=== PATIENT | female | born 1975 | race Caucasian/White ===

== ENCOUNTER 2019-11-21 12:18 | Outpatient (REF) | payer MEDICAID, SELFPAY ==
[2019-11-24 20:48] LABS: Beta-HCG, Quant, Tumor Marker <0.6 IU/L
== END 2019-11-21 12:38 ==
LOC: NCHCN 12:18
PROVIDERS: PCP Physician Assistant; Visit Provider Physician Assistant
DX: N91.2 Amenorrhea, unspecified (principal)
CPT/HCPCS: 84702

== ENCOUNTER 2020-06-01 14:05 | Outpatient (REF) | payer MEDICAID, SELFPAY ==
[2020-06-05 21:22] LABS: Patient Race White; SARS-CoV-2 RNA Undetected (Undetected); SARS-CoV-2 Specimen Source Nasal
== END 2020-06-01 14:25 ==
LOC: NCHCN 14:05
PROVIDERS: PCP Physician Assistant; Visit Provider Orthopaedic Surgery Adult Reconstructive Orthopaedic Surgery
DX: Z11.59 Encounter for screening for other viral diseases (principal)
CPT/HCPCS: U0003

== ENCOUNTER 2020-10-07 21:00 | Outpatient (REF) | payer MEDICAID, SELFPAY ==
[2020-10-09 14:21] LABS: COVID-19 RT-PCR UVMMC Result Negative (Negative)
== END 2020-10-07 21:01 | disposition home or self-care (01) ==
LOC: NCHCN 21:00
PROVIDERS: PCP Physician Assistant; Visit Provider Nurse Practitioner Family
DX: Z20.822 Contact with and (suspected) exposure to COVID-19 (principal); R06.09 Other forms of dyspnea
CPT/HCPCS: U0003

== ENCOUNTER → 2021-10-05 01:51 | Outpatient (CLI) | payer MEDICAID, SELFPAY ==
--- NOTE | 2021-10-05 | DI.US_ITS ---
Exam(s) US PELVIS TRANSVAGINAL EXAM: US PELVIS TRANSVAGINAL CLINICAL HISTORY: OVARIAN CYST N83.209 LOWER ABD PAIN R10.30 TECHNIQUE: Ultrasound of the pelvis was performed both transabdominal and transvaginal. COMPARISON: No exams were available for comparison FINDINGS: UTERUS: Nongravid and anteverted, measuring Measures 8.6 cm length x 4.1 cm AP x 4.7 cm wide. There are no uterine fibroids. Endometrial thickness measures 3.2 mm. There is no fluid in the endometrial canal. CERVIX: Multiple small nabothian cysts evident in the upper cervix RIGHT OVARY: Measures 0.1 x 2.6 x 1.5 cm No significant cysts nor masses evident in the right ovary. LEFT OVARY: Measures 0.8 x 2.6 x 1.7 cm Contains a follicular cysts measuring 0.7 x 0.6 cm. CUL-DE-SAC: No free fluid evident. IMPRESSION: 1. Normal appearing uterus and age-appropriate endometrium. 2. No abnormal ovarian findings. 3. No free fluid evident in the adnexal regions and cul-de-sac. DATA REPOSITORY:
== END ==
PROVIDERS: PCP Physician Assistant; Visit Provider Naturopath
DX: N83.201 Unspecified ovarian cyst, right side (principal); R10.30 Lower abdominal pain, unspecified; N83.202 Unspecified ovarian cyst, left side
CPT/HCPCS: 76830; 76856

== ENCOUNTER 2021-11-09 17:48 | Outpatient (CLI) | payer MEDICAID, SELFPAY ==
--- NOTE | 2021-11-09 | DI.RAD_ITS ---
Exam(s) XR ANKLE LT COMPLETE EXAM: XR ANKLE LT COMPLETE CLINICAL HISTORY: ANKLE/FOOT PAIN M25.579. TECHNIQUE: 2D digital imaging was performed. COMPARISON: No exams were available for comparison FINDINGS: 3 views No evidence of fracture or widening of the mortise. Talar dome unremarkable. There are no degenerat fred changes ankle subtalar joints. No evidence tarsal coalition. Bone density is normal. No osseou s lesions IMPRESSION: No significant osseous findings. DATA REPOSITORY: RADIATION DOSE DELIVERED:
--- NOTE | 2021-11-09 | DI.RAD_ITS ---
Exam(s) XR FOOT LT COMPLETE EXAM: XR FOOT LT COMPLETE CLINICAL HISTORY: ANKLE FOOT PAIN. TECHNIQUE: 2D digital imaging was performed. COMPARISON: No exams were available for comparison FINDINGS: 3 views There is no evidence of fracture diastasis the Merry joint. No osseous lesions erosions bone density n ormal. Prominent plantar arch noted. No calcifications seen the plantar fascia. IMPRESSION: No fracture evident. DATA REPOSITORY: RADIATION DOSE DELIVERED:
--- NOTE | 2021-11-09 17:27 | DI.VRAD_ITS ---
PROCEDURE INFORMATION: Exam: XR Left Ankle Exam date and time: 11/09/2021 4:53 PM Age: 46 years old Clinical indication: Other: Ankle and foot pain TECHNIQUE: Imaging protocol: XR Left ankle. Views: 3 or more views. COMPARISON: No relevant prior studies available. FINDINGS: Bones/joints: No acute fracture or malalignment. No significant degenerative change. No agressive bone destruction. Soft tissues: Unremarkable. IMPRESSION: 1. No acute findings. 2. If clinical concern for occult fracture, consider followup radiographs in 7-10 days. Dictated and Authenticated by: Luz Marina Eavns MD. Ordering:LE Stevenson MD
--- NOTE | 2021-11-09 17:27 | DI.VRAD_ITS ---
PROCEDURE INFORMATION: Exam: XR Left Foot Exam date and time: 11/09/2021 4:55 PM Age: 46 years old Clinical indication: Other: Ankle/foot pain TECHNIQUE: Imaging protocol: XR Left foot. Views: 3 or more views. COMPARISON: CR XR ANKLE LT COMPLETE 11/09/2021 4:53 PM FINDINGS: Bones/joints: No acute fracture or malalignment. No significant degenerative change. No agressive bone destruction. Soft tissues: Unremarkable. IMPRESSION: 1. No acute findings. 2. If clinical concern for occult fracture, consider followup radiographs in 7-10 days. Dictated and Authenticated by: Luz Marina Evans MD. Ordering:LE Stevenson MD
== END 2021-11-09 18:08 ==
PROVIDERS: PCP Physician Assistant; Visit Provider Family Medicine
DX: M25.572 Pain in left ankle and joints of left foot (principal); M79.672 Pain in left foot
CPT/HCPCS: 73610; 73630

== ENCOUNTER 2022-08-03 12:18 | Outpatient (REF) | payer MEDICAID, SELFPAY | END 2022-08-03 12:19 | disposition home or self-care (01) | LOC: NCHCN 12:18 | PROVIDERS: PCP Physician Assistant; Visit Provider Nurse Practitioner Family | DX: R19.4 Change in bowel habit (principal) | CPT/HCPCS: 87086 ==

== ENCOUNTER 2022-09-01 13:43 | Outpatient (CLI) | payer MEDICAID, SELFPAY ==
[2022-09-01 13:50] LABS: Abs Immature Grans 0.03 10^3/uL (0.0-0.06); Absolute Basophil Count 0.05 10^3/uL (0.0-0.2); Absolute Eosinophil Count 0.07 10^3/uL (0.0-0.7); Absolute Lymphocyte Count 1.92 10^3/uL (1.2-3.4); Absolute Monocyte Count 0.38 10^3/uL (0.1-0.8); Absolute Neutrophil Count 6.64 10^3/uL (1.2-6.7); Basophils % 0.6; Eosinophils % 0.8; HCT 38.2 % (36.0-46.0); HGB 13.3 g/dL (11.2-15.7); Immature Grans % 0.3; Lymphocytes % 21.1; MCHC 34.8 % (32.0-36.0); MCV 92 fL (80-95); MPV 11.8 fL (8.0-11.0); Monocytes % 4.2; Platelet Count 299 10^3/uL (130-400); RBC 4.15 10^6/uL (3.93-5.22); RDW 12.6 % (11.7-14.6); RDW-SD 42.1 fL; WBC 9.09 10^3/uL (4.4-10.8)
[2022-09-01 15:48] LABS: ALT 31 U/L (14-59); AST 23 U/L (15-37); Albumin 3.8 g/dL (3.4-5.0); Alkaline Phosphatase 44 U/L (46-116); BUN 16 mg/dL (7-18); Bilirubin, Total 0.2 mg/dL (0.2-1.0); CREATININE 0.8 mg/dL (0.55-1.02); Calcium 8.7 mg/dL (8.5-10.1); Chloride 102 mmol/L (98-107); Estimated GFR 92.54 (mL/min/1.73m2); Glucose 140 mg/dL (74-106); Potassium 3.5 mmol/L (3.5-5.1); Sodium 139 mmol/L (136-145)
[2022-09-01 15:50] LABS: C-Reactive Protein < 0.05 mg/dL (0.0-0.3)
[2022-09-01 16:23] LABS: ESR 2 mm/hr (0-20)
== END 2022-09-01 13:44 | disposition home or self-care (01) ==
LOC: LBO 13:45
PROVIDERS: PCP Physician Assistant; Visit Provider Naturopath
DX: R19.5 Other fecal abnormalities (principal)
CPT/HCPCS: 36415; 80053; 85652; 85025; 86140

== ENCOUNTER 2022-09-02 16:03 | Outpatient (REF) | payer MEDICAID, SELFPAY ==
[2022-09-05 16:53] LABS: Calprotectin <50.0 mcg/g
[2022-09-09 19:27] LABS: Lactoferrin, Qt, Stool <6.25 mcg/mL (<7.25)
== END 2022-09-02 16:04 | disposition home or self-care (01) ==
LOC: LBN 16:03
PROVIDERS: PCP Physician Assistant; Visit Provider Naturopath
DX: R19.5 Other fecal abnormalities (principal)
CPT/HCPCS: 83631; 83993; 87177

== ENCOUNTER 2022-10-16 09:51 | Outpatient (REF) | payer MEDICAID, SELFPAY ==
--- NOTE | 2022-10-16 09:25 | PAPFT_PTH ---
PATIENT: Danie Noe LOC: [facility] U#:[id number] AGE/SX: 47/F ROOM: RE10/16/[address]: Lizeth Roland NP : 1975 BED: DIS: 10/16/2022 SPEC #: [id number] RECD: 10/16/22 13:01 STATUS: TRISHA REQ #: [id number] LUIS: 10/16/22 09:[address]: Lizeth Roland NP DEPT: [facility] Cytology RECD BY: Kalani Holloway ENTERED: 10/16/22 13:02 SP TYPE: PAPFT OTHR DR: Arik Calle Tissues: 1 - CX/ENDOCX FOR PAP SMEARS Procedures: PAP THIN PREP/UVM Screening HPV DNA PROBE Comments: [id number]
== END 2022-10-16 09:52 | disposition home or self-care (01) ==
LOC: LBN 09:51
PROVIDERS: PCP Physician Assistant; Visit Provider Nurse Practitioner Women's Health
DX: Z12.4 Encounter for screening for malignant neoplasm of cervix (principal); Z11.51 Encounter for screening for human papillomavirus (HPV); R87.810 Cervical high risk human papillomavirus (HPV) DNA test positive
CPT/HCPCS: 88142; 87624

== ENCOUNTER 2022-11-23 01:47 | Outpatient (CLI) | payer MEDICAID, SELFPAY ==
[2022-11-23 22:19] LABS: Prolactin 5.3 ng/mL (See Note)
== END 2022-11-23 01:48 | disposition home or self-care (01) ==
LOC: LBO 01:47
PROVIDERS: PCP Physician Assistant; Visit Provider Nurse Practitioner Women's Health
DX: N64.52 Nipple discharge (principal)
CPT/HCPCS: 36415; 84146

== ENCOUNTER 2022-12-27 10:40 | Outpatient (REF) | payer MEDICAID, SELFPAY ==
--- NOTE | 2022-12-27 10:30 | CER_PTH ---
PATIENT: Danie Noe LOC: [facility] U#:[id number] AGE/SX: 47/F ROOM: RE12/27/[address]: Cathy Carr MD : 1975 BED: DIS: 12/27/2022 SPEC #: [id number] RECD: 12/27/22 17:39 STATUS: TRISHA REQ #: [id number] LUIS: 12/27/22 10:[address]: Cathy Carr DEPT: Surgical Specimen RECD BY: Kalani Holloway ENTERED: 12/27/22 17:40 SP TYPE: CER OTHR DR: Arik Calle Tissues: 1 - CERVICAL BIOPSY 2 - ENDOCERVICAL BX/CURRETTE Procedures: GROSS AND MICRO LEVEL 4 Comments: [id number]
== END 2022-12-27 10:41 | disposition home or self-care (01) ==
LOC: LBN 10:40
PROVIDERS: PCP Physician Assistant; Visit Provider Obstetrics & Gynecology
DX: R87.810 Cervical high risk human papillomavirus (HPV) DNA test positive (principal); N88.8 Other specified noninflammatory disorders of cervix uteri
CPT/HCPCS: 88305

== ENCOUNTER 2023-01-18 02:16 | Outpatient (CLI) | payer MEDICAID, SELFPAY ==
--- NOTE | 2023-01-18 13:44 | DI.MAMMO_ITS ---
Exam(s) MAMMO DIAGNOSTIC BI EXAM: MAMMO DIAGNOSTIC BI CLINICAL HISTORY: R sided nipple discharge,n64.52 TECHNIQUE: Mammograms were interpreted according to the usual protocol including computer analysis w [employer] CAD system, tomosynthesis and C-view imaging. COMPARISON: 2020 from [facility] FINDINGS: The breasts are composed of heterogeneously dense fibroglandular densities, Breast Density category C . No suspicious masses or suspicious microcalcifications are seen. No skin thickening or abnormal axillary lymph nodes are seen. There has been no significant change from prior exam. IMPRESSION: BI-RADS Category 1, Negative mammogram. Yearly screening mammography is recommended. Breast Density Category C, heterogeneously Dense. The mammogram demonstrates the patient's breast tissue is dense. Dense breast tissue is very common a nd is not abnormal but dense breast tissue can make it harder to find cancer on a mammogram. Also, de nse breast tissue may increase breast cancer risk. This information about the result of the mammogram report was provided to the patient to raise their awareness. Use this report when you speak with the patient about their risks for breast cancer, which includes their family history. At that time, you may recommend additional screening tests (Ultrasound or MRI) as they might be useful based on their r isk. A negative radiographic report should not delay biopsy if a dominant or clinically suspicious mass is present. Up to ten percent of cancers are not identified on mammography. A negative report may reinforce clinical impression. Adenosis and dense breasts may obscure an underlying neoplasm. False positive reports average 6 to 10%.
== END 2023-01-18 02:36 ==
LOC: DI 02:16
PROVIDERS: PCP Physician Assistant; Visit Provider Nurse Practitioner Women's Health
DX: N64.52 Nipple discharge (principal); Z12.31 Encounter for screening mammogram for malignant neoplasm of breast
CPT/HCPCS: 77062; 77066; G0279

== ENCOUNTER 2023-06-05 12:15 | Outpatient (REF) | payer MEDICAID, SELFPAY | END 2023-06-05 12:16 | disposition home or self-care (01) | LOC: NCHCN 12:15 | PROVIDERS: PCP Physician Assistant; Visit Provider Physician Assistant | DX: B80 Enterobiasis (principal) | CPT/HCPCS: 87169 ==

== ENCOUNTER 2023-09-07 11:15 | Emergency (ER) | payer MEDICAID, SELFPAY ==
[2023-09-07 11:32] VITALS: BP 97/50; PULSE 74; RESP 16; TEMP 36.6; O2SAT 100
--- NOTE | 2023-09-07 12:04 | DI.RAD_ITS ---
Exam(s) XR FINGER RT RING EXAM: XR FINGER RT RING CLINICAL HISTORY: 4th digit injury. TECHNIQUE: 2D digital imaging was performed of the right finger. Three views were obtained. PA/AP, oblique, and lateral views were obtained. COMPARISON: No exams were available for comparison FINDINGS: BONES: No acute fracture is present. No bony destructive lesion is seen. JOINTS: No dislocation present. SOFT TISSUE: Normal. IMPRESSION: No evidence of acute fracture, dislocation, or subluxation. DATA REPOSITORY: RADIATION DOSE DELIVERED:
[2023-09-07 12:47] VITALS: BP 107/69; PULSE 74; RESP 18; TEMP 36.9; O2SAT 98
--- NOTE | 2023-09-11 09:17 | W.ED.GENAD ---
HPI General Date/Time Provider Initiated Documentation: 09/07/23 11:34. HPI Narrative: This 48-year-old female presents with report of right fourth digit injury. Patient states that her finger was caught in her pants and she pulled, now she is unable to extend her finger. This occurred just prior to arrival. Denies any additional complaints at this time. Denies chance of . Related Data Home Medications Medication Instructions Recorded Confirmed Unknown [No Known Home Meds] 09/07/23 09/07/23 Allergies Allergy/AdvReac Type Severity Reaction Status Date / Time Latex, Natural Rubber Allergy Intermediate Itching Verified 09/07/23 11:31 General Stated Complaint: Orthopedic ANGY: 4 Course Vital Signs Vital signs: Vital Signs Temperature 36.6 C 09/07/23 11:32 Pulse 74 09/07/23 11:32 Respiratory Rate 16 09/07/23 11:32 Blood Pressure 97/50 L 09/07/23 11:32 Pulse Oximetry 100 09/07/23 11:32 Temperature 36.9 C 09/07/23 12:47 Temperature Source Oral 09/07/23 11:32 Pulse 74 09/07/23 12:47 Respiratory Rate 18 09/07/23 12:47 Respiratory Effort Normal, Non-Labored 09/07/23 11:35 Blood Pressure 107/69 09/07/23 12:47 Pulse Oximetry 98 09/07/23 12:47 Pain Level 4 09/07/23 11:32 Medical Decision Making 48-year-old female with report of fourth digit injury, unable to fully extend. Then x-ray was ordered which does not show evidence of fracture or dislocation, suspect extensor tendon injury Referred to orthopedics and placed in a splint in extension Return precautions reviewed and patient expressed understanding Quality:SDOH Health Related Social Needs: No Data to Display PFSH All Active Problems (Updated 09/07/23 @ 12:26 by REYNOLD Riley) Extensor tendon disruption (Acute) Hematochezia (Acute) Vitamin D deficiency (Acute) Low blood pressure (Acute) Irregular periods (Acute) Alteration in appetite (Acute) Numbness and tingling sensation of skin (Acute) Increased thirst (Acute) Nipple discharge (Acute) Rectal bleeding (Acute) Rectal pain (Acute) Medical History (Updated 09/07/23 @ 12:26 by REYNOLD Riley) History of abnormal cervical Pap smear December 2022: [place] --> September 2022: Normal cytology/HPV+ - no subtyping Had intermittent normal and slightly abnl paps between Apr 2019: ECC: LSIL/EMMANUEL Feb 2019: ASCUS/HPV+ pap (not 16/18) October 2017: ECC: LSIL 2013: normal pap 2009: abnl pap but did not end up having a LEEP Chronic low back pain Back pain with radiation Dyspnea Pain in joint, ankle and foot Change in stool habits Constipation Sinusitis Dysphagia Tonsillolith Surgical History History of dental surgery metal implants in situ Hx of knee surgery allograft, pin in situ Hx of section Family History (Updated 01/04/23 @ 09:14 by REYNOLD Pagan) Paternal Grandfather Colon cancer Social History (Updated 01/04/23 @ 09:13 by REYNOLD Pagan) Smoking/Tobacco Use Status: Never Smoking risk assessment performed?: Yes Alcohol Intake: current Alcohol Intake frequency: a few times a week Alcohol type: wine Drug use: Never Substance use type: does not use Household members: family Housing: house Number of Children: 1 current occupation: Teacher Sexually active: Yes Do you think of yourself as: straight/heterosexual Current gender identity: female Do you feel safe at home: Yes Do you feel safe in your relationship?: Yes Female Reproductive History Menstrual Age of Menarche: 15 Duration of menses: 3-5 days control method: none History History 2 Para 1 Hx # Term Pregnancies Multiple births Hx # Pregnancies Ectopic pregnancies AB induced 1 Hx Number of Living Children AB spontaneous Past Pregnancies Del. Date GA/Weeks # Preg Succ Route Wgt Sex Labor Lgth Anesthesia Location [facility] 04/10/16 42 Yes 3231.846 g Female [place], [place] Delivery Date: 04/10/16 Last Updated by: Lea Kang Discharge Plan Disposition Patient Disposition: Home Discharge Details Clinical Impression: Extensor tendon disruption Primary Care Provider: Arik Calle ED Provider: Kalani Shin Home Meds and New Rx's Prescriptions: No Action No Known Home Meds Discharge Instructions Additional Instructions: Please follow-up with orthopedics, keep your finger splint in place Ibuprofen and Tylenol as needed for pain Please return earlier should you have new or worsening complaints Stand Alone Forms: Work Release Referrals: Arik Calle [Primary Care Provider] - Discharge Data Discharge Date/Time-TO BE ENTERED AT DEPARTURE: 09/07/23 12:49
== END 2023-09-07 12:49 | disposition home or self-care (01) ==
PROVIDERS: Emergency Provider Physician Assistant; PCP Physician Assistant
DX: M67.88 Other specified disorders of synovium and tendon, other site (principal); W23.0XXA Caught, crushed, jammed, or pinched between moving objects, initial encounter
CPT/HCPCS: 29130; 99283; 73140

== ENCOUNTER 2023-11-08 08:32 | Day surgery (SDC) | payer MEDICAID, SELFPAY ==
--- NOTE | 2023-11-07 18:31 | W.PM.DSUDISC ---
Date of service: 11/08/23 Time of Service: 10:01 Discharge Plan Disposition Patient Disposition: Home Condition: Good Discharge Details Reason For Visit: screening colonoscopy Attending Provider: Greg Henderson Primary Care Provider: Arik Calle Home Meds and New Rx's Prescriptions: Discontinued bisacodyl [Dulcolax (bisacodyl)] 5 mg tablet,delayed release (DR/EC) 5 mg PO ONCE Qty: 4 0RF polyethylene glycol 3350 17 gram/dose powder 17 g PO DAILY Qty: 238 0RF Discharge Instructions Additional Instructions: Danie, we are able to complete your colonoscopy today without any issues. Your prep was excellent, and I could see everything fine. You have some very mild internal hemorrhoids, which are typically exacerbated a little bit by the prep itself. Otherwise, everything looks totally normal and healthy. Based on your family history of colon cancer, I recommend a follow-up colonoscopy in 5 years. 1. If tolerated, consume a soft, low fiber diet for 1-2 days. 2[address] Do not drive, drink alcohol, operate machinery, make critical decisions, or do activities that require coordination or balance for 24 hours. 3. Because air was put into your colon during the procedure, expelling air from your rectum (passing gas or farting) is normal. 4. You may not have a bowel movement for 1-3 days because of the colonoscopy prep. This is normal. 5. Go directly to the emergency room if you notice any of the following: Develop chills (warm to touch), or if you have a thermometer and your temperature is above 101 Difficulty breathing or difficultly swallowing Persistent vomiting Severe abdominal pain, other than gas cramps Severe chest pain Black, tarry stools Any bleeding ? exceeding one tablespoon 6. Call your physician if the site where your intravenous was started becomes red, swollen, painful, and warm to touch. 7. Your physician has reviewed your pre-procedure medications. Please continue to take those medications as previously ordered. You will be given specific information/education regarding any changes to your medications before leaving. Activity:: Activity as Tolerated Diet:: As Tolerated Discharge Orders Discharge Orders: Discharge Order (Routine); Ordered 11/07/23 Ordered By: Greg Henderson DS: Diagnosis Discharge Diagnosis (1) Encounter for screening colonoscopy: Status: Acute Asessment and Plan: Negative screening colonoscopy; follow-up in 5 years based on family history of colon cancer
--- NOTE | 2023-11-07 18:33 | COLE_ITS ---
Date of service: 11/08/23 Time of Service: 10:03 Colonoscopy Report Date of procedure: 11/08/23 Pre-op diagnosis general: screening colonoscopy Post-op diagnosis procedure note: other (Normal screening colonoscopy) Procedure: colonoscopy Surgeon: Greg Henderson Anesthesia Type: General:No Airway Estimated blood loss (mL): 0 Pathology: none sent Complications: None Disposition: same day Indications: Danie is a 48 year old woman with a family history of colon cancer who needs a screening colonoscopy Prep: Miralax/Dulcolax Procedure Start Time: 09:36 Procedure End Time: 09:55 Retraction Time: 7 Findings: Normal screening colonoscopy Procedure Description: After the induction of monitored anesthetic care, and with the patient in left lateral decubitus position, I began by performing an external anorectal exam.? Perineum and skin were normal, as was the anal verge.? There was no evidence of external hemorrhoids.? Next, I performed a digital rectal exam.? I did not appreciate any abnormal findings.? Next, I advanced a colonoscope into the rectal vault.? I performed retroflexion.? I there is grade 1 internal hemorrhoids.? Using insufflation, I then advanced the colonoscope beyond the rectal folds and into the sigmoid colon before advancing towards the cecum.? The quality of the prep was excellent.? The scope was noted to be in the cecum by identification of the ileocecal valve and appendiceal orifice.? I then began withdrawing the colonoscope using repeated irrigation as necessary for full evaluation of the colonic mucosa. ?Once the scope was withdrawn to the level of the rectum, great care was taken to examine portions of the rectal folds.? I did not see any signs of tumors, polyps, or any other abnormalities. Finally, the scope was withdrawn and the patient was brought to the same-day surgery recovery unit as the anesthetic wore off. ?The findings and instructions were shared with the patient prior to discharge. [place] Bowel Prep [place] Bowel Prep Right Colon: 3 Left Colon: 3 Transverse Colon: 3 Total Score: 9
--- NOTE | 2023-11-07 19:51 | ANES.PREOP_ITS ---
General Info Date of Service Date Performed: 11/08/23 Height: 5 ft 7 in Weight: 56.869 kg Body Mass Index (BMI): 19.6 Surgical Procedure: Operation Date: 11/08/23 09:50 Proposed Procedure Side Surgeon p Colonoscopy Greg Henderson MD Meds Allergies and Home Medications Allergies Allergy/AdvReac Type Severity Reaction Status Date / Time Latex, Natural Rubber Allergy Intermediate Itching Verified 11/08/23 08:42 Current Visit Medications: Current Medications Generic Name Dose Route Start Last Admin Trade Name Freq PRN Reason Stop Dose Admin Hyoscyamine Sulfate 0.125 mg 11/07/23 18:31 Hyoscyamine 0.125 Mg Sl/Oral/Chew SL 12/07/23 18:30 DIRECTED PRN Ringer's Solution 1,000 mls @ 80 mls/hr 11/08/23 06:00 IV 12/07/23 23:59 [facility]ION [facility] IV Miscellaneous Supplies 1 each 11/08/23 06:00 Iv Access IV 12/07/23 23:59 DIRECTED CHANDRAKANT Ondansetron HCl 4 mg 11/07/23 18:31 Ondansetron 4 Mg/2 Ml Vial IVP 12/07/23 18:30 Q4H PRN PRN Nausea / Vomiting Sodium Chloride 0 ml 11/08/23 06:00 Normal Saline Flush 10 Ml Syr IV 12/07/23 23:59 PRN PRN Sodium Chloride 0 ml 11/08/23 06:00 Normal Saline 10 Ml Vial IJ 12/07/23 23:59 DIRECTED PRN Sterile Water 0 ml 11/08/23 06:00 Water,Injection,Sterile 10 Ml Vial IJ 12/07/23 23:59 DIRECTED PRN PFSH Active Problems Active Problems: Problem Status Onset Code Encounter for screening colonoscopy Z12.11 Hematochezia K92.1 Vitamin D deficiency E55.9 Low blood pressure I95.9 Irregular periods N92.6 Alteration in appetite R63.8 Numbness and tingling sensation of skin R20.0, R20.2 Increased thirst R63.1 Nipple discharge N64.52 Rectal bleeding K62.5 Rectal pain K62.89 Medical History Medical History History of abnormal cervical Pap smear December 2022: [place] --> September 2022: Normal cytology/HPV+ - no subtyping Had intermittent normal and slightly abnl paps between Apr 2019: ECC: LSIL/EMMANUEL Feb 2019: ASCUS/HPV+ pap (not 16/18) October 2017: ECC: LSIL 2013: normal pap 2010: abnl pap but did not end up having a LEEP Chronic low back pain Back pain with radiation Dyspnea Pain in joint, ankle and foot Change in stool habits Constipation Sinusitis Dysphagia Tonsillolith Medical History Comments:: Per pt. states her mom had to have her heart jump started Surgical History Surgical History History of dental surgery metal implants in situ Hx of knee surgery allograft, pin in situ Hx of section Tobacco Smoking/Tobacco Use Status: Never Alcohol Alcohol Intake: current Alcohol intake frequency: a few times a week Alcohol type: wine Substance Use Substance use: Never Substance use type: does not use Prental History History 2 Para 1 Hx # Term Pregnancies Multiple births Hx # Pregnancies Ectopic pregnancies AB induced 1 Hx Number of Living Children AB spontaneous Past Pregnancies Del. Date GA/Weeks # Preg Succ Route Wgt Sex Labor Lgth Anesth esia Location [facility] 04/10/16 42 Yes 3231.846 g Female [place] Delivery Date: 04/10/16 Last Updated by: Lea Kang Vital Signs and Lab Results Vital Signs Most Recent Vital Signs in EMR: Temp Pulse Resp BP Pulse Ox 36.7 C 87 16 118/71 100 11/08/23 08:58 11/08/23 08:58 11/08/23 08:58 11/08/23 08:58 11/08/23 08:58 Lab Results Blood Type / Crossmatch: No Data to Display Complete Blood Count: No Data to Display Complete Metabolic Panel: No Data to Display Liver Function Panel: No Data to Display Coagulation Panel: No Data to Display Cardiac Panel: No Data to Display Arterial Blood Gas: No Data to Display Venous Blood Gas: No Data to Display Pancreas Panel: No Data to Display Thyroid Panel: No Data to Display Infectious Disease: No Data to Display Blood Cultures: No Data to Display Toxicology Panel: No Data to Display Panel: No Data to Display Anesthesia Assessment and Plan Anesthesia History Personal History: No History of Anesthesia Complications Family History: Other Exercise Tolerance Exercise Tolerance: Metabolic Equivalents>4 Cardiac & Pulmonary Exam Cardiac Exam: Normal S1/S2 Heart Sounds Pulmonary Exam: Clear Bilateral Breath Sounds Implantable Cardiac Device Does patient have a Pacemaker or an ICD?: No Airway Exam Known Difficult Airway: No Mallampati Class: 2 Mouth Opening: Normal (> 3cm) Thyromental Distance: Less than 3 cm Neck Range of Motion: Full ROM Neck Circumference: Normal Teeth Condition: Normal Dentition ASA Classification ASA Score: ASA 2 Emergency Case?: No NPO Status NPO Status: NPO Clears >2 hours, Solids >8 hours Status Status: Negative HCG Anesthesia Plan Resuscitation Status: Full Code Anesthesia Technique: General Anesthesia Airway Planned: Natural Airway Monitors Used: Standard Monitors Preoperative Comments:: 48 yo female for colo. Sig PMHx: back pain, dysphagia, never smoker, occ EtOH.
[2023-11-08 08:58] VITALS: BP 118/71; PULSE 87; RESP 16; TEMP 36.7; O2SAT 100
[2023-11-08] MEDS: Lactated Ringers 1,000 ML 80 ML IV (09:02)
[2023-11-08 09:08] VITALS: BMI 19.6
[2023-11-08 09:59] VITALS: BP 99/64; PULSE 80; RESP 16; TEMP 36.3; O2SAT 100
--- NOTE | 2023-11-08 10:07 | W.ANESPOSTOP ---
Postoperative Evaluation Date, Time and Location Date Performed: 11/08/23 Time Performed: 10:07 Patient Location: Day Surgery Unit Vital Signs Most Recent Imported Vital Signs: Most Recent Vital Signs Temp Pulse Resp BP Pulse Ox 36.3 C L 80 16 99/64 L 100 11/08/23 09:59 11/08/23 09:59 11/08/23 09:59 11/08/23 09:59 11/08/23 09:59 Pain Score Most Recent Pain Score: Most Recent Pain Score Pain Level 0 11/08/23 09:59 Assessment Mental Status: Awake (Alert & Oriented to Patient Baseline) Airway and Respiratory Function: Patent airway with normal (patient baseline) respiratory exam Cardiovascular Function: Hemodynamically Stable Hydration Status: Adequately Hydrated Nausea & Vomiting: No Nausea or Vomiting Pain: Pt. Denies Any Pain Peripheral Nerve Block: Patient did not receive a nerve block
[2023-11-08 10:29] VITALS: BP 103/59; PULSE 66; RESP 16; TEMP 36.5; O2SAT 100
== END 2023-11-08 10:49 | disposition home or self-care (01) ==
LOC: SUR 08:32
PROVIDERS: PCP Physician Assistant; Visit Provider Surgery
PROC: 0DJD8ZZ Inspection of Lower Intestinal Tract, Via Natural or Artificial Opening Endoscopic (ICD-10-PCS; CPT 45378; principal; 2023-11-08 09:45)
DX: Z12.11 Encounter for screening for malignant neoplasm of colon (principal); Z80.0 Family history of malignant neoplasm of digestive organs; E55.9 Vitamin D deficiency, unspecified
CPT/HCPCS: 45378; J2704

== ENCOUNTER 2023-12-18 15:50 | Emergency (ER) | payer OTHER, SELFPAY ==
[2023-12-18 15:53] VITALS: BP 125/39; PULSE 79; RESP 18; TEMP 37.1; O2SAT 99
--- NOTE | 2023-12-18 16:15 | DI.RAD_ITS ---
Exam(s) XR ANKLE RT COMPLETE XR FOOT RT COMPLETE EXAM: XR ANKLE RT COMPLETE CLINICAL HISTORY: contusion. TECHNIQUE: 2D digital imaging was performed. Three views of the foot and ankle.. COMPARISON: CR,XR XR ANKLE LT COMPLETE from 11/09/2021 CR XR FOOT RT COMPLETE from 12/18/2023 FINDINGS: BONES: No acute fracture is present. No bony destructive lesion is seen. Accessory navicular. Tiny ossicle adjacent to lateral, anterior calcaneus. JOINTS: The ankle mortise is normally aligned. SOFT TISSUE: Normal. IMPRESSION: Unremarkable radiographs of the right foot and ankle. DATA REPOSITORY: RADIATION DOSE DELIVERED:
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
== END 2023-12-18 18:08 | disposition home or self-care (01) ==
PROVIDERS: Emergency Provider Physician Assistant; PCP Physician Assistant
DX: S96.911A Strain of unspecified muscle and tendon at ankle and foot level, right foot, initial encounter (principal); Z23 Encounter for immunization; Y08.09XA Assault by strike by other specified type of sport equipment, initial encounter; Y93.89 Activity, other specified; Y92.218 Other school as the place of occurrence of the external cause; Y99.0 Civilian activity done for income or pay
CPT/HCPCS: 90471; 99283; 73610; 73630

== ENCOUNTER 2024-08-13 15:30 | Outpatient (REF) | payer BC, MEDICAID, SELFPAY | END 2024-08-13 15:31 | disposition home or self-care (01) | LOC: NCHCN 15:30 | PROVIDERS: PCP Physician Assistant; Visit Provider Physician Assistant | DX: N39.0 Urinary tract infection, site not specified (principal) | CPT/HCPCS: 87086 ==

== ENCOUNTER → 2025-06-03 01:23 | Outpatient (CLI) | payer OTHER, SELFPAY ==
--- NOTE | 2025-06-03 | DI.MRI_ITS ---
Exam(s) MR LOWER JOINT LT WO EXAM: MR LOWER JOINT LT WO CLINICAL HISTORY: LT KNEE PAIN, MILD INSTABILITY, INJURY LAST September, ACL REPAIR X 2 TECHNIQUE: Multiplanar multisequence MRI of the knee was performed. COMPARISON: There are no plain films of the knee available at the time of this MRI interpretation. FINDINGS: EFFUSION: There is a small-moderate size joint effusion. There is no Allan cyst in the popliteal fossa. There are no loose intra-articular bodies evident. MARROW:There is no evidence of fracture, bone contusion, nor osteochondral defects.. There are no significant osseous lesions. PATELLOFEMORAL COMPARTMENT: The quadriceps tendon is intact. The patellar ligament is intact. There are few thin fissures evident with in the retropatellar cartilage prominently over the mid and medial facets. There is no abnormal intraosseous signal in the posterior patella.There is no intraosseous signal to suggest recent patellar dislocation. There are no patellar retinacular tears. CRUCIATE LIGAMENTS: There is evidence of prior ACL surgery. The ACL graft appears intact with no evidence of tear. There are a few ACL associated tunnel cysts in the tibial tunnel. The posterior cruciate ligament is intact. MEDIAL COMPARTMENT/MEDIAL MENISCUS: There are no tears of the medial meniscus evident.. There is some mild-moderate cartilage thinning in the medial compartment and there is 1 small focal area of full thickness cartilage defect over the inner 3rd of the main weight-bearing surface of the medial femoral condyle there is no subarticular edema nor osteochondral defect at this level nor elsewhere in the medial compartment. No marginal osteophytes evident. MEDIAL COLLATERAL LIGAMENT: Intact. No evidence of tear and no evidence of an ischial capsular separation LATERAL COMPARTMENT/LATERAL MENISCUS: There is significant attenuation and what appears to be tear at the level of the root of the posterior horn of the medial meniscus. No flipped fragment. No evidence of tear of the anterior horn of the lateral meniscus.There is some thinning of the articular cartilage over the lateral 3rd of the weight-bearing surface of the lateral femoral condyle. There is also subarticular edema. No osteochondral defects. No osteophytes. ILIOTIBIAL BAND: Intact LATERAL COLLATERAL LIGAMENT COMPLEX: The fibular collateral ligament is intact. The biceps femoris tendon is intact.Popliteus muscle and tendon are intact. IMPRESSION: 1. There is attenuation and tear in the medial aspect of the posterior horn of the lateral meniscus. The anterior horn of the lateral meniscus appears intact. There are no tears of the medial meniscus. 2. ACL reconstruction graft appears intact. There are small tibial tunnel cysts evident 3. No tears of the posterior cruciate ligament and there are no collateral ligament tears. 4. Articular cartilage findings in all 3 compartments consistent with early osteoarthritis. There are no osteochondral defects nor significant subarticular edema and no osteophytes. 5. Small-moderate size knee joint effusion. No loose intra-articular bodies. No Allan cyst. DATA REPOSITORY:
--- NOTE | 2025-06-03 19:19 | DI.VRAD_ITS ---
PROCEDURE INFORMATION: Exam: MR Left Lower Extremity Joint Without Contrast, Knee Exam date and time: 06/03/2025 10:50 AM Age: 50 years old Clinical indication: Injury or trauma; Fall; Blunt trauma; Knee; Left; Prior surgery; Surgery date: 6+ months; Previous acl surgery, reinjury, mild instability TECHNIQUE: Imaging protocol: Magnetic resonance imaging of the left lower extremity joint without contrast. Exam focused on the knee. COMPARISON: CR XR FOOT LT COMPLETE 11/09/2021 4:55 PM FINDINGS: Bones/joints: Small joint effusion. A focal full-thickness cartilage defect is seen overlying the lateral and central weight-bearing surface of the medial femoral condyle. Moderate cartilage thinning throughout the remaining medial compartment with associated joint space narrowing and early osteoarthritis. Mild cartilage thinning and fibrillation throughout the lateral compartment with associated mild osteoarthritis. Several full-thickness cartilage fissures are seen overlying the medial and lateral patellar facets. Superimposed large areas of full-thickness cartilage loss overlying the medial femoral trochlea and trochlear ridge. Mild, early, osteoarthritis within the patellofemoral compartment. Bursae: Tiny Allan's cyst. Medial meniscus: Mild intrasubstance degenerative signal throughout the anterior horn, body and posterior horn of the medial meniscus without tear. Lateral meniscus: Rupture/complete tear at the posterior root attachment of the lateral meniscus, with displacement of the body into the medial gutter. Superimposed truncation of the free edge of the lateral meniscus, representing either sequela of a prior partial lateral meniscectomy or potentially fraying. Anterior cruciate ligament: Postoperative changes of an ACL reconstruction. Small tibial and femoral tunnels cysts are seen. The ACL graft is intact without evidence for a tear or rupture. Posterior cruciate ligament: Minimal degeneration of the PCL without evidence for a sprain or tear. Medial capsule and supporting structures: The proximal MCL has a slightly thickened appearance which may represent sequela of a prior sprain. No evidence for an acute sprain. The medial supporting structures are otherwise normal in appearance. Lateral capsule and supporting structures: Mild proximal popliteus tendinosis without tear. The arcuate ligament complex is significantly thinned. The lateral collateral ligament complex is otherwise normal in appearance. Extensor mechanism of knee: Mild proximal patellar tendinosis and tendinitis without tear. The distal quadriceps tendon is normal in appearance. Soft tissues: Unremarkable. IMPRESSION: 1. Lateral meniscal tear with displacement of the body into the lateral gutter. 2. ACL reconstruction with small tibial and femoral tunnel cyst. No evidence for a tear or rupture of the ACL graft. 3. The arcuate ligament complex is significantly thinned which may represent sequela of a chronic high-grade, grade 3/3, sprain. 4. 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 5. Chronic MCL sprain. 6. Small joint effusion. Tiny Allan's cyst. Dictated and Authenticated by: Antoinette Salas MD. Orderin Luc Elise MD
== END ==
PROVIDERS: PCP Physician Assistant; Visit Provider Physician Assistant
DX: M25.562 Pain in left knee (principal)
CPT/HCPCS: 73721